=== PATIENT | female | born 1960 | race American Indian/Alaskan Native ===

== ENCOUNTER 2017-09-10 06:34 | Emergency (ER) | payer OTHER ==
[2017-09-10 06:41] VITALS: BP 177/89
[2017-09-10] MEDS ORDERED: TORADOL IM ONE (08:09)
--- NOTE | 2017-09-10 08:16 | Emergency Department Report ---
ED Upper Extremity Inj HPI - General Chief Complaint: Extremity Injury, Upper Stated Complaint: LT ARM PAIN Time Seen by Provider: 09/10/17 07:40 Source: patient Mode of arrival: Ambulatory Limitations: No Limitations - History of Present Illness Initial Comments: This is a 56-year-old female nontoxic, well nourished in appearance, no acute signs of distres presents to the ED c/o of left upper back pain radiating to left lower arm. Patient stated she was at a drive thru and reached to get her food and developed sharp pain in he left sided upper back that started to radiate to left upper extermity. Patient stated symptoms became worse and now describes pain as soreness. Patient denies any trauma to the region. Denies any numbness, tingling, fever, chills, headache, chest pain, shortness of breathe, abdominal pain, n/v. Patient denies any facial dropping or slurred speech. Denies any decreased ROM or abnormal gait. States allergies to Vicodin. PMH includes MO, DM, and HTN. MD Complaint: Injury to:: left, shoulder, arm -: Gradual, days(s) (2) Other Extremity Injury: Arm: Left Other Injuries: none Place: outdoors Severity scale (0 -10): 4 Improves With: none, rest Worsens With: other (palpation of deltoid muscle) Associated Symptoms: denies other symptoms. denies: weakness, numbness, neck pain, suspects foreign body, nausea/vomiting, heard/felt popping sensat - Related Data Home Medications Medication Instructions Recorded Confirmed Last Taken Aspirin [Adult Low Dose Aspirin EC] 81 mg PO DAILY 06/06/16 07/11/16 1 Week Ago Losartan [Cozaar] 25 mg PO QDAY 06/06/16 07/07/16 07/11/16 08:00 Metformin HCl [Glucophage] 1,000 mg PO BID 06/06/16 07/07/16 07/11/16 08:00 Metoprolol [Lopressor] 100 mg PO BID 06/06/16 07/07/16 07/11/16 08:00 amLODIPine [Norvasc] 10 mg PO DAILY 06/06/16 07/07/16 07/11/16 08:00 glipiZIDE ER 10 mg PO DAILY 06/06/16 07/07/16 07/11/16 08:00 Previous Rx's Medication Instructions Recorded Last Taken Type oxyCODONE /ACETAMINOPHEN [Percocet 1 - 2 tab PO Q6HR PRN #20 tablet 06/06/1610/14 08:00 Rx 5/325] Cyclobenzaprine [Flexeril] 10 mg PO BID PRN #10 tablet 09/10/17 Unknown Rx Ibuprofen [Motrin] 600 mg PO Q8H PRN #30 tablet 09/10/17 Unknown Rx Allergies Allergy/AdvReac Type Severity Reaction Status Date / Time hydrocodone bitartrate Allergy Itching Verified 07/07/16 11:17 [From Vicodin] pineapple Allergy Itching Verified 07/11/16 10:37 ED Review of Systems ROS: Stated complaint: LT ARM PAIN Other details as noted in HPI Constitutional: denies: chills, fever Eyes: denies: eye pain, eye discharge, vision change ENT: denies: ear pain, throat pain Respiratory: denies: cough, shortness of breath, wheezing Cardiovascular: denies: chest pain, palpitations Endocrine: no symptoms reported Gastrointestinal: denies: abdominal pain, nausea, diarrhea Genitourinary: denies: urgency, dysuria, discharge Musculoskeletal: denies: back pain, joint swelling, arthralgia Skin: denies: rash, lesions Neurological: denies: headache, weakness, paresthesias Psychiatric: denies: anxiety, depression Hematological/Lymphatic: denies: easy bleeding, easy bruising ED Past Medical Hx - Past Medical History Hx Hypertension: Yes (X 20 YRS) Hx Heart Attack/AMI: Yes (2008) Hx Congestive Heart Failure: No Hx Diabetes: Yes Hx Renal Disease: No Additional medical history: bypass surgery in 2008 - Surgical History Hx Open Heart Surgery: Yes (CABG 2008) Additional Surgical History: hysterectomy 2011, bypass in 2008, 3 c-sections - Social History Smoking Status: Never Smoker Substance Use Type: None - Medications Home Medications: Home Medications Medication Instructions Recorded Confirmed Last Taken Type Aspirin [Adult Low Dose Aspirin EC] 81 mg PO DAILY 06/06/16 07/11/16 1 Week Ago History Losartan [Cozaar] 25 mg PO QDAY 06/06/16 07/07/16 07/11/16 08:00 History Metformin HCl [Glucophage] 1,000 mg PO BID 06/06/16 07/07/16 07/11/16 08:00 History Metoprolol [Lopressor] 100 mg PO BID 06/06/16 07/07/16 07/11/16 08:00 History amLODIPine [Norvasc] 10 mg PO DAILY 06/06/16 07/07/16 07/11/16 08:00 History glipiZIDE ER 10 mg PO DAILY 06/06/16 07/07/16 07/11/16 08:00 History oxyCODONE /ACETAMINOPHEN [Percocet 1 - 2 tab PO Q6HR PRN #20 tablet 06/06/1606/1407/11/16 08:00 Rx 5/325] Cyclobenzaprine [Flexeril] 10 mg PO BID PRN #10 tablet 09/10/17 Unknown Rx Ibuprofen [Motrin] 600 mg PO Q8H PRN #30 tablet 09/10/17 Unknown Rx ED Physical Exam - General Limitations: No Limitations General appearance: alert, in no apparent distress - Head Head exam: Present: atraumatic, normocephalic, normal inspection - Eye Eye exam: Present: normal appearance, PERRL, EOMI. Absent: scleral icterus, conjunctival injection, nystagmus, periorbital swelling, periorbital tenderness Pupils: Present: normal accommodation - ENT ENT exam: Present: normal exam, normal orophraynx, mucous membranes moist, TM's normal bilaterally, normal external ear exam - Neck Neck exam: Present: normal inspection, full ROM. Absent: tenderness, meningismus, lymphadenopathy, thyromegaly - Respiratory Respiratory exam: Present: normal lung sounds bilaterally. Absent: respiratory distress, wheezes, rales, rhonchi, stridor, chest wall tenderness, accessory muscle use, decreased breath sounds, prolonged expiratory - Cardiovascular Cardiovascular Exam: Present: regular rate, normal rhythm, normal heart sounds. Absent: bradycardia, tachycardia, irregular rhythm, systolic murmur, diastolic murmur, rubs, gallop - GI/Abdominal GI/Abdominal exam: Present: soft, normal bowel sounds. Absent: distended, tenderness, guarding, rebound, rigid, diminished bowel sounds - Rectal Rectal exam: Present: deferred - Extremities Exam Extremities exam: Present: normal inspection, full ROM, tenderness, normal capillary refill. Absent: pedal edema, joint swelling, calf tenderness - Expanded Upper Extremity Exam Left General: Present: normal inspection Shoulder Exam: Present: normal inspection, full ROM, tenderness (deltoid muscle) . Absent: swelling, abrasion, laceration, ecchymosis, deformity, crepidus, dislocation, erythema, tenderness over AC joint Upper Arm exam: Present: normal inspection, full ROM, tenderness (bicep and tricep region). Absent: swelling, abrasion, laceration, ecchymosis, deformity, crepidus, dislocation, erythema Elbow exam: Present: normal inspection, full ROM. Absent: tenderness, swelling , laceration Forearm Wrist exam: Present: normal inspection, full ROM. Absent: tenderness, swelling, abrasion, laceration, ecchymosis, deformity, crepidus, dislocation, erythema, tenderness over anatomical snuff box, pain with axial thumb loading Hand Wrist exam: Present: normal inspection, full ROM. Absent: tenderness, swelling, abrasion, laceration, deformity, crepidus, dislocation, erythema, amputation, nail avulsion, subungual hematoma Neuro motor exam: Present: wrist extension intact, thumb opposition intact, thumb IP flexion intact, thumb adduction intact, fingers 2-5 abduction intact Neurosensory exam: Present: 2-point discrimination, radial nerve intact, ulnar nerve intact, median nerve intact Vascular: Present: vascular compromise, normal capillary refill, radial pulse, brachial pulse, ulnar pulse - Back Exam Back exam: Present: normal inspection, full ROM, paraspinal tenderness (left- sided cervical region). Absent: tenderness, CVA tenderness (R), CVA tenderness (L), muscle spasm, vertebral tenderness, rash noted - Neurological Exam Neurological exam: Present: alert, oriented X3, CN II-XII intact, normal gait, reflexes normal - Expanded Neurological Exam Expanded Patient oriented to: Present: person, place, time Cranial nerves: EOM's Intact: Normal, Gag Reflex: Normal, Tongue Deviation: Normal, Nystagmus: Normal, Facial Sensation: Normal, Facial Palsy with Forehead Movement: Normal, Facial Palsy without Forehead Movement: Normal Cerebellar function: Finger to Nose: Normal, Heel to King: Normal, Romberg: Normal Upper motor neuron: Stephane Neglect: Normal, Pronator Drift: Normal, Babinski Sign : Normal, Sensory Extinction: Normal Sensory exam: Upper Extremity Light Touch: Normal, Upper Extremity Pin Prick: Normal, Upper Extremity Temperature: Normal, UE 2 Point Discrimination: Normal, Lower Extremity Light Touch: Normal, Lower Extremity Pin Prick: Normal, Lower Extremity Temperature: Normal, LE 2 Point Discrimination: Normal Motor strength exam: RUE: 5, LUE: 5, RLE: 5, LLE: 5 DTR: bicep (R): 2+, bicep (L): 2+, tricep (R): 2+, tricep (L): 2+, knee (R): 2+ , knee (L): 2+, ankle (R): 2+, ankle (L): 2+ Best Eye Response (Jenny): (4) open spontaneously Best Motor Response ([place]): (6) obeys commands Best Verbal Response (Jenny): (5) oriented [place] Total: 15 - Psychiatric Psychiatric exam: Present: normal affect, normal mood - Skin Skin exam: Present: warm, dry, intact, normal color. Absent: rash ED Course Vital Signs 09/10/17 06:38 Temperature 97.8 F Pulse Rate 90 Respiratory 18 Rate Blood Pressure 177/89 O2 Sat by Pulse 98 Oximetry - Reevaluation(s) Reevaluation #1: 09/10/17 08:20 Patient is speaking in full sentences with no signs of distress ntoed, ED Medical Decision Making - Medical Decision Making 56-year-old female that presents with cervical radiculopathy vs. muscle spasm/ strain. Patient was examined by me and patient is stable. Neurovascular intact. No signs of neuro deficit. Patient received Tordal in the ED which patient stated symptoms are improving and subsiding. Patient will be treated with flexeril and motrin at d/c and was instrcuted not to operate any machinery while taking flexeril. At time time of discharge, the patient does not seem toxic or ill in appearance. No acute signs of distress noted. Patient agrees to discharge treatment plan of care. No further questions noted by the patient. PAtient was instructed to follow-up with primary care doctor in 3-5 days or return to the Emergency room if symptoms worsen and continue. Critical care attestation.: If time is entered above; I have spent that time in minutes in the direct care of this critically ill patient, excluding procedure time. ED Disposition Clinical Impression: Muscle strain, Cervical radiculopathy, Muscle spasm Disposition: - TO HOME OR SELFCARE Is pt being admited?: No Does the pt Need Aspirin: No Condition: Stable Instructions: Cervical Radiculopathy (ED), Muscle Spasm (ED), Ibuprofen (By mouth), Cyclobenzaprine (By mouth) Additional Instructions: Follow-up with primary care doctor in 3-5 days or return to the Emergency room if symptoms worsen and continue. Take ibuprofen and Flexeril as prescribed. Do not operate heavy machinery while taking Flexeril due to sedation Prescriptions: Cyclobenzaprine [Flexeril] 10 mg PO BID PRN #10 tablet PRN Reason: Muscle Spasm Ibuprofen [Motrin] 600 mg PO Q8H PRN #30 tablet PRN Reason: Pain Referrals: PRIMARY CARE, [Primary Care Provider] - 3-5 Days HÉCTOR CASH MD [Staff Physician] - 3-5 Days [facility] [Outside] - 3-5 Days [facility] [Outside] - 3-5 Days Forms: Work/School Release Form(ED)
--- NOTE | 2017-09-10 08:25 | XRay Report ---
FINAL REPORT EXAM: XR HUMERUS 2+V LT HISTORY: humerus pain lt COMPARISONS: None. FINDINGS: AP and lateral views left humerus No bone lesion, periosteal reaction, or fracture. No deformity or gross malalignment. IMPRESSION: Intact left humerus.
--- NOTE | 2017-09-10 08:33 | XRay Report ---
FINAL REPORT EXAM: XR FOREARM LT HISTORY: forearm pain lt COMPARISONS: None. FINDINGS: AP and lateral views left forearm No bone lesion, periosteal reaction, or fracture. No deformity or gross malalignment. IMPRESSION: No fracture or gross malalignment.
== END 2017-09-10 08:44 | disposition home or self-care (01) ==
LOC: ED 06:34
DX: M54.12 Radiculopathy, cervical region (principal); I10 Essential (primary) hypertension; I25.2 Old myocardial infarction; E11.9 Type 2 diabetes mellitus without complications; Z88.8 Allergy status to other drugs, medicaments and biological substances; Z91.018 Allergy to other foods; Z79.82 Long term (current) use of aspirin
CPT/HCPCS: 73060; 73090; 96372; 99283; J1885

== ENCOUNTER 2017-11-29 19:38 | Emergency (ER) | payer OTHER ==
[2017-11-29 20:48] LABS: Basophils % (Auto) 0.4 % (0.0-1.8); Eosinophils # (Auto) 0.2 K/mm3 (0.0-0.4); Eosinophils % (Auto) 2.5 % (0.0-4.3); Hematocrit 43.5 % (30.3-42.9); Hemoglobin 13.5 gm/dl (10.1-14.3); Lymphocytes # (Auto) 1.9 K/mm3 (1.2-5.4); Mean Corpuscular HGB Conc 31 % (30-34); Monocytes # (Auto) 0.5 K/mm3 (0.0-0.8); Platelet Count 159 K/mm3 (140-440); Red Cell Distribution Width 16.9 % (13.2-15.2)
[2017-11-29 20:49] LABS: Mean Corpuscular Hemoglobin 21 pg (28-32); Mean Corpuscular Volume 67 fl (79-97)
[2017-11-29 21:06] LABS: BUN/Creatinine Ratio 27; Blood Urea Nitrogen 16 mg/dL (7-17); Calcium 9.3 mg/dL (8.4-10.2); Hemolysis Index 10
[2017-11-30 03:29] LABS: Bilirubin,Urine NEG (Negative); Blood,Urine NEG (Negative); Color,Urine Yellow (Yellow); Mucus,Urine FEW /HPF; Nitrite,Urine NEG (Negative); Urobilinogen,Urine < 2.0 mg/dL (<2.0)
[2017-11-30] MEDS ORDERED: ANTIVERT PO ONE (06:55)
[2017-11-30 07:41] VITALS: BP 178/90
--- NOTE | 2017-11-30 07:46 | Emergency Department Report ---
HPI - General Chief Complaint: Dizziness Time Seen by Provider: 11/30/17 06:23 ED Past Medical Hx - Past Medical History Previous Medical History?: Yes Hx Hypertension: Yes (X 20 YRS) Hx Heart Attack/AMI: Yes (2008) Hx Congestive Heart Failure: No Hx Diabetes: Yes Hx Renal Disease: No Additional medical history: bypass surgery in 2008 - Surgical History Past Surgical History?: Yes Hx Open Heart Surgery: Yes (CABG 2008) Additional Surgical History: hysterectomy 2011, bypass in 2008, 3 c-sections - Social History Smoking Status: Never Smoker Substance Use Type: None - Medications Home Medications: Home Medications Medication Instructions Recorded Confirmed Last Taken Type Aspirin [Adult Low Dose Aspirin EC] 81 mg PO DAILY 06/06/16 07/11/16 1 Week Ago History ~07/04/16 Losartan [Cozaar] 25 mg PO QDAY 06/06/16 07/07/16 07/11/16 08:00 History Metformin HCl [Glucophage] 1,000 mg PO BID 06/06/16 07/07/16 07/11/16 08:00 History Metoprolol [Lopressor] 100 mg PO BID 06/06/16 07/07/16 07/11/16 08:00 History amLODIPine [Norvasc] 10 mg PO DAILY 06/06/16 07/07/16 07/11/16 08:00 History glipiZIDE ER 10 mg PO DAILY 06/06/16 07/07/16 07/11/16 08:00 History oxyCODONE /ACETAMINOPHEN [Percocet 1 - 2 tab PO Q6HR PRN #20 tablet 06/06/1606/1407/11/16 08:00 Rx 5/325] Cyclobenzaprine [Flexeril] 10 mg PO BID PRN #10 tablet 09/10/17 Unknown Rx Ibuprofen [Motrin] 600 mg PO Q8H PRN #30 tablet 09/10/17 Unknown Rx Meclizine [Antivert] 25 mg PO TID PRN #20 tablet 11/30/17 Unknown Rx ED Review of Systems ROS: Stated complaint: DIZZINESS Other details as noted in HPI Physical Exam - Physical Exam Vital Signs: Vital Signs 11/29/17 11/30/17 11/30/17 20:02 03:45 04:00 Temperature 98.2 F Pulse Rate 87 85 Respiratory 16 21 20 Rate Blood Pressure 173/110 Blood Pressure 205/100 [Right] O2 Sat by Pulse 98 100 98 Oximetry 11/30/17 11/30/17 05:00 07:00 Temperature Pulse Rate 77 105 H Respiratory 13 21 Rate Blood Pressure Blood Pressure 185/94 178/90 [Right] O2 Sat by Pulse 97 96 Oximetry ED Course Vital Signs 11/29/17 11/30/17 11/30/17 20:02 03:45 04:00 Temperature 98.2 F Pulse Rate 87 85 Respiratory 16 21 20 Rate Blood Pressure 173/110 Blood Pressure 205/100 [Right] O2 Sat by Pulse 98 100 98 Oximetry 11/30/17 11/30/17 05:00 07:00 Temperature Pulse Rate 77 105 H Respiratory 13 21 Rate Blood Pressure Blood Pressure 185/94 178/90 [Right] O2 Sat by Pulse 97 96 Oximetry ED Medical Decision Making - Lab Data Result diagrams: 11/29/17 20:31 11/29/17 20:31 Critical care attestation.: If time is entered above; I have spent that time in minutes in the direct care of this critically ill patient, excluding procedure time. ED Disposition Clinical Impression: Acute otitis media, bilateral, Dehydration, Orthostatic dizziness Disposition: DC-01 TO HOME OR SELFCARE Is pt being admited?: No Does the pt Need Aspirin: No Condition: Stable Instructions: Otitis Media (ED), Dehydration (ED) Prescriptions: Meclizine [Antivert] 25 mg PO TID PRN #20 tablet PRN Reason: Vertigo Referrals: JAAN TALBOT MD [Primary Care Provider] - 3-5 Days Forms: Work/School Release Form Time of Disposition: 07:44
== END 2017-11-30 09:13 | disposition home or self-care (01) ==
LOC: ED 19:38
DX: E86.0 Dehydration (principal); R42 Dizziness and giddiness; H66.93 Otitis media, unspecified, bilateral; I10 Essential (primary) hypertension; E11.9 Type 2 diabetes mellitus without complications; I25.2 Old myocardial infarction; Z90.710 Acquired absence of both cervix and uterus; Z95.1 Presence of aortocoronary bypass graft; Z88.5 Allergy status to narcotic agent; Z91.018 Allergy to other foods
CPT/HCPCS: 36415; 80048; 81001; 82962; 85025; 93005; 93010; 99284